=== PATIENT | female | born 1985 ===

== ENCOUNTER → 2019-01-17 | Outpatient (CLI) | payer OTHER | END | disposition home or self-care (01) | LOC: NUCLEAR 01-12 08:00 | DX: E03.8 Other specified hypothyroidism (principal); E04.1 Nontoxic single thyroid nodule | CPT/HCPCS: 78013; A9512 ==

== ENCOUNTER 2019-02-24 07:54 | Outpatient (CLI) | payer OTHER | END 2019-02-24 10:18 | disposition home or self-care (01) | LOC: SONOGRAMA 07:54 | DX: E04.2 Nontoxic multinodular goiter (principal) ==